=== PATIENT | female | born 1970 | race Caucasian/White ===

== ENCOUNTER → 2024-12-29 09:05 | Outpatient (REF) | payer BC, SELFPAY | LOC: WDC 09:05 | PROVIDERS: ATTENDING PHYSICIAN Family Medicine | DX: N63.20 Unspecified lump in the left breast, unspecified quadrant (principal) | CPT/HCPCS: 76642; 77062; 77066 ==

== ENCOUNTER 2025-04-18 15:09 | Emergency (ER) | payer BC, SELFPAY ==
[2025-04-18 15:13] VITALS: BP 176/93
[2025-04-18 15:40] LABS: Hematocrit 42.0 % (37.0-47.0); Hemoglobin 14.2 g/dL (12.0-16.0); Mean Corp Hgb Conc. 33.8 g/dL (33.0-37.0); Mean Corpuscular Volume 95.0 fL (81.0-99.0); Nucleated Red Blood Cells % 0 %; Platelet Count 268 10^3/uL (130-400); Red Cell Dist. Width 12.9 % (11.5-14.5)
[2025-04-18 15:53] LABS: ALT (SGPT) 24 U/L (0-35); AST (SGOT) 31 U/L (14-36); Albumin 5.0 g/dl (3.5-5.0); Alkaline Phosphatase 95 U/L (38-126); Blood Urea Nitrogen 10 mg/dl (7-17); Calcium 9.9 mg/dl (8.4-10.2); Carbon Dioxide 26 mmol/L (22-30); Chloride 102 mmol/L (98-107); Glucose 115 mg/dl (70-99); Potassium 4.0 mmol/L (3.5-5.1); Sodium 138 mmol/L (135-145); Total Protein 8.1 g/dl (6.3-8.2); eGFR > 60.00
[2025-04-18 16:00] LABS: Troponin I 0.013 ng/ml
[2025-04-18 19:51] VITALS: BP 149/89
--- NOTE | 2025-04-18 21:17 | ED.GENMED ---
History of Present Illness
General
Chief Complaint: Musculo-Skeletal Complaint
Source: patient
Exam Limitations: none
Time Seen by Provider: 04/18/25 19:22
Nursing documentation reviewed up to this point in time: agreed with
History of Present Illness
History of Present Illness:
Patient is a healthy 54-year-old female who presents to the emergency department with left axillary pain. Patient states that approximate 1 week ago when she was in the shower she noticed a small 'lump' in her left axilla. She states it is tender
when pressed. She denies any redness, warmth, or swelling. She also notices 'soreness' of her left upper arm over the past week. She denies any fever, chills. No numbness/tingling in left upper extremity. No chest pain or shortness of breath.
Patient denies any recent falls or known inciting trauma. Pain is not worse with range of motion. She denies any recent viral symptoms.
Her last mammogram was in September�without abnormal findings.
She denies any recent travel or recent surgeries. No personal or family history of blood clots or clotting disorders.
Past History
Past History
ED Past Medical History: None
ED Past Surgical History: None
Patient has exhibited threatening behavior?: No
Social History
Living: with family
Review of Systems
Review of Systems
Allergies reviewed?: Yes
All Other Systems: ROS reviewed and negative except as documented in HPI and ROS
Phy Exam
Physical Exam
Physical Exam:
Vitals: Hypertensive, otherwise vital. Afebrile
General: Patient is very well-appearing, no distress
Skin: Small, 0.5 cm subcutaneous nodule in left axilla without overlying skin erythema or warmth. No surrounding edema. No fluctuance or induration. Warm and dry, no rashes or lesions
Head: Normocephalic, atraumatic
Throat: Protecting airway
Neck: Normal ROM, no cervical spine tenderness
Cardiac: Regular rate
Pulm: No apparent respiratory distress
Abdomen: Nondistended
Extremities: Small subcutaneous nodule in left axilla as above. No bony tenderness or deformity of left upper extremity. No erythema or edema of left arm. She has full range of motion in left arm at wrist, elbow, and shoulder without pain.
Palpable brachial and radial pulses with normal sensation and capillary refill.
Neuro: Grossly intact
Psychiatric: Normal affect.
Course
Orders/Labs/Results
Orders:
Orders
04/18/25 15:14
Electrocardiogram (*1) Urgent
Reason for Study: Other
Other Reason for Exam: left arm pain
EKG- Treatment ONCE
04/18/25 15:21
Complete Blood Count/With Diff Urgent
Comprehensive Metabolic Panel Urgent
Troponin I Urgent
Abnormal Lab Results
04/18/25
15:21
MCH 32.1 H pg
(27.0-31.0)
MPV 11.1 H fL
(7.4-10.4)
Absolute Monos (auto) 0.8 H 10^3/uL
(0.1-0.6)
Monocytes % 10.0 H %
(1.7-9.3)
Glucose 115 H mg/dl
(70-99)
04/18/25 15:21
04/18/25 15:21
Vital Signs
Initial and Last Documented VS:
Initial Vital Signs
Temp Pulse Resp BP Pulse Ox
98 F 82 16 176/93 98
04/18/25 15:13 04/18/25 15:13 04/18/25 15:13 04/18/25 15:13 04/18/25 15:13
Last Documented Vital Signs
Temp Pulse Resp BP Pulse Ox
98 F 70 16 149/89 99
04/18/25 15:13 04/18/25 19:51 04/18/25 19:51 04/18/25 19:51 04/18/25 21:17
MDM/Problems Addressed
Differential Diagnosis Includes:
Not limited to: Lymphadenopathy, muscular strain, malignancy, etc.
MDM/Problems Addressed:
54 year-old female was left axillary discomfort for one week. No known injury or trauma. No infectious symptoms. No chest pain or shortness of breath. Vitals stable. On exam, patient appears well and in no distress. Left upper extremity
neurovascularly intact without any bony tenderness or deformity. No erythema or swelling of LUE. She has full range of motion. There is a very small, tender subcutaneous nodule in left axilla. There is no overlying skin changes including erythema,
warmth, or fluctuance.
While very low suspicion for cardiac etiology, labs and EKG were sent prior to my assessment. EKG without evidence of acute ischemia. Troponin undetectable. Symptoms have been constant for 1 week - feel this is sufficient to r/o acute cardiac
emergency. Patient�s lab work unremarkable.
Possible reactive lymphadenopathy. Patient has no risk factors for DVT without any findings on physical exam suggestive of this. She has no bony tenderness or recent trauma. Feel X-ray imaging very low yield. There is no evidence of infectious
process.
Considered ultrasound evaluation for further characterization/evaluation however after discussion w/ radiology, this will be better performed in the outpatient setting at the [facility] as they have experience with breast tissue.
There is no indication for emergent ultrasound with no evidence of infection or vascular compromise.
Discussed w/ patient at length who expresses verbal understanding.
Feel stable for discharge home with supportive care and close monitoring. She has appointment scheduled with [facility] this and will follow-up then.
Chronic conditions affecting care:
N/A
Acute Exacerbation and/or Progression of Chronic Illness:
N/A
*Pulse Oximetry
SaO2: 99
Oxygen Mode of Delivery: Room air
Patient hypoxic: no
*EKG
Interpreted by ED Provider?: Yes
EKG Intrepretation Date: 04/19/25
Interpretation: normal
Comparison EKG: no comparison EKG present
Heart Rate: 66
Rate: normal
Rhythm: sinus
[place]: normal axis
QRS Pattern: normal QRS
Ischemia: no ischemia
*Social Services Coordinator Interpretation
Rate: Social Services Coordinator- N/A
*Critical Care Note
Total Time (30-74mins, 75-104mins- exclusive of procedures): Not Applicable
ED Attending Note
-
Portions of this chart may have been created with voice recognition software.� Occasional wrong word or��sound alike� substitutions may have occurred due to the inherent limitations of voice recognition software.
Discharge Plan
Departure
Patient Disposition: Home (Routine Discharge)
Date of Disposition: 04/18/25
Time of Disposition: 20:53
Patient with high blood pressure during this ER visit?: Yes
Condition: Good
Discharge Problem:
Left axillary pain
Referrals:
Idris Grant MD [Family Provider, [facility]] - Follow up in 2-3 days
Activity Restrictions/Additional Instructions:
RETURN TO THE EMERGENCY DEPARTMENT WITH ANY FEVERS, CHEST PAIN OR SHORTNESS OF BREATH, REDNESS/SWELLING/WORSENING PAIN IN LEFT ARM, OR ANY OTHER CONCERNS
- As discussed, your lab work and cardiac enzymes were normal today in the emergency department. Your EKG showed no acute abnormalities
- Your symptoms may be due to a muscular strain axilla. Please follow-up for outpatient ultrasound/mammogram for further evaluation.
- You can take Tylenol and/or Motrin as needed for discomfort.
-Follow-up with [facility] on as scheduled.
Monitor your symptoms closely and return to the emergency department with any acute worsening/new symptoms or any other concerns
Interventions
Interventions:
*Risk Screen - Suicide Last Done: 04/18/25 15:13
*General Assessment Last Done: 04/18/25 19:51
*Neglect/Abuse Screening Last Done: 04/18/25 15:13
*ED- Fall Risk Assessment Last Done: 04/18/25 19:51
*Nursing Disposition Last Done: 04/18/25 21:19
ED-Musculoskeletal Assessment Last Done: 04/18/25 19:51
Discharge Date and Time
Discharge Date/Time: 04/18/25 21:19
Print Language: MACANESE
== END 2025-04-18 21:19 | disposition home or self-care (01) ==
LOC: EMR 15:09
PROVIDERS: EMERGENCY PHYSICIAN Student in an Organized Health Care Education/Training Program; FAMILY PHYSICIAN Family Medicine
DX: M79.622 Pain in left upper arm (principal); R03.0 Elevated blood-pressure reading, without diagnosis of hypertension
CPT/HCPCS: 99284; 80053; 84484; 85025; 93005

== ENCOUNTER 2025-04-30 09:02 | Emergency (ER) | payer BC, SELFPAY ==
[2025-04-30 09:05] VITALS: BP 129/78
--- NOTE | 2025-04-30 09:45 | ED.GENMED ---
History of Present Illness
General
Chief Complaint: Musculo-Skeletal Complaint
Source: patient
Exam Limitations: none
Time Seen by Provider: 04/30/25 09:41
History of Present Illness
History of Present Illness:
See MDM
Past History
Past History
ED Past Medical History: None
ED Past Surgical History: None
Patient has exhibited threatening behavior?: No
Social History
Tobacco: Non-smoker
Alcohol: Occasional
Living: with family
Phy Exam
Physical Exam
Physical Exam:
See MDM
Course
Orders/Labs/Results
Orders:
Orders
04/30/25 09:44
Oxycodone [Roxicodone] 5 mg PO NOW STA
Tib/Fib, Left 2 View [CR Leg Tibia/fibula Left 2 Vw] Urgent
Comment:
Reason For Exam: fall, pain below knee
04/30/25 10:25
Crutches-Treatment ONCE
Knee Immobilizer Left-Treatmen ONCE
Vital Signs
Initial and Last Documented VS:
Initial Vital Signs
Temp Pulse Resp BP Pulse Ox
99.5 F 89 18 129/78 100
04/30/25 09:05 04/30/25 09:05 04/30/25 09:05 04/30/25 09:05 04/30/25 09:05
Last Documented Vital Signs
Temp Pulse Resp BP Pulse Ox
99.5 F 89 18 129/78 100
04/30/25 09:05 04/30/25 09:05 04/30/25 09:05 04/30/25 09:05 04/30/25 09:47
MDM/Problems Addressed
Differential Diagnosis Includes:
Note:
CHIEF COMPLAINT(S)
Difficulty walking, pain possibly in the knee or leg.
HISTORY OF PRESENT ILLNESS
The patient is a 54-year-old female who presents with difficulty walking following a recent fall. She reports waking up in the morning and being unable to move well, leading her to call her friend for assistance. On exam, pt has pain below the left
knee and has had trouble with weight bearing. She denies numbness or tingling.
PHYSICAL EXAM
General: Mildly uncomfortable
Skin: Warm, dry.
Head: Normocephalic, atraumatic
Neck: Appears supple, trachea midline.
Eyes, Ears, Nose, Mouth, and Throat: Moist mucous membranes
Cardiovascular: No signs of cyanosis
Respiratory: Respirations are non-labored.
Abdomen: Non-distended
Musculoskeletal: Swelling and tenderness just below left knee. Distal extremity neurovascularly intact
Neurological: No focal neurological deficit observed.
Psychiatric: Cooperative, appropriate mood and affect.
PLAN
- Administer pain medication.
- Obtain an X-ray to evaluate for potential fracture.
MEDICAL DECISION MAKING
-Chronic conditions affecting care: None mentioned from the patients history.
-Data:
Category 1: Tests and documents
- X-ray ordered to assess for possible fracture.
DIFFERENTIAL DIAGNOSIS
The Differential Diagnosis includes, in no particular order and is not limited to:
- Fracture
- Sprain or strain
- Soft tissue injury
- Contusion
- Osteoarthritis exacerbation
- Ligament injury
- Meniscal injury
- Tendinitis
- Bursitis
- Muscle tear
MEDICATION RECONCILIATION
Patient is allergic to sulfa drugs.
PHYSICAL EXAM
- Nursing notes reviewed and vital signs reviewed.
DIAGNOSIS
- Suspected fracture of the knee or leg pending further investigation (ICD-10: S82.90XA - Unspecified fracture of lower leg, initial encounter).
SUMMARY OF ENCOUNTER
The patient, a 54-year-old female, presented to the emergency department with difficulty walking and suspected leg/knee pain following a night of alcohol consumption. An X-ray was performed and interpreted, showing a minimally displaced proximal
fibular fracture. The treatment plan was discussed, which included placing the patient in a knee immobilizer and using crutches. The patient expressed comfort with the proposed management plan and was advised to follow up with an orthopedic
specialist for reevaluation.
EMERGENCY TREATMENTS ADMINISTERED
The patient was placed in a knee immobilizer, and crutches were provided to assist with mobility.
PLAN
The patient will be placed in a knee immobilizer and instructed in the use of crutches to minimize weight-bearing on the affected leg. Follow-up with an occupational safety specialist is recommended for reevaluation of the fracture.
INDEPENDENT REVIEW OF LABS AND INTERPRETATION OF TESTS
- My independent interpretation of the X-ray shows a minimally displaced proximal fibular fracture.
PATIENT EDUCATION AND COUNSELING
The patient was educated on the use of the knee immobilizer and crutches. Instructions were given on the need for follow-up with an occupational safety specialist for further evaluation and management of the fracture.
FOLLOW-UP INSTRUCTIONS
The patient is advised to schedule a follow-up visit with an occupational safety specialist to reassess the proximal fibular fracture.
MEDICATION RECONCILIATION
The patient is allergic to sulfa drugs.
MEDICAL DECISION MAKING
- Complexity of Data Reviewed: Chronic conditions affecting care are not mentioned from the patients history. Differential diagnoses considered included fracture, sprain or strain, soft tissue injury, contusion, osteoarthritis exacerbation, ligament
injury, meniscal injury, tendinitis, bursitis, and muscle tear.
- Data:
- Category 1: An X-ray was ordered and independently interpreted to diagnose the fracture.
- Risk: The decision was made to manage the fracture conservatively with an immobilizer and crutches, with instructions for orthopedic follow-up.
DIAGNOSIS
Proximal fibular fracture, minimally displaced (ICD-10: S82.832A - Other fracture of upper and lower end of left fibula, initial encounter for closed fracture).
*Pulse Oximetry
SaO2: 100
Oxygen Mode of Delivery: Room air
Patient hypoxic: no
*Critical Care Note
Total Time (30-74mins, 75-104mins- exclusive of procedures): Not Applicable
ED Attending Note
-
Portions of this chart may have been created with voice recognition software.� Occasional wrong word or��sound alike� substitutions may have occurred due to the inherent limitations of voice recognition software.
Discharge Plan
Departure
Patient Disposition: Home (Routine Discharge)
Date of Disposition: 04/30/25
Time of Disposition: 10:26
Patient with high blood pressure during this ER visit?: No
Discharge Problem:
Closed fibular fracture
Instructions: Lower leg fracture
Prescriptions:
New
diclofenac sodium 75 mg tablet,delayed release (DR/EC)
75 mg PO BID PRN (Reason: Pain) Qty: 20 0RF
oxycodone 5 mg tablet
5 mg PO Q8H PRN (Reason: Pain) Qty: 14 0RF
Referrals:
Idris Grant MD [Family Provider, Family Practice]
Kranthi Hadley MD [Active, Orthopedics]
Activity Restrictions/Additional Instructions:
Please return for any worsening symptoms.
You may return at any time if you have further concerns.
Please follow up with your doctor at the first available appointment, preferably this week.
Please make an appointment to see the orthopedist.
Thank you for choosing [facility].
Interventions
Interventions:
*Risk Screen - Suicide Last Done: 04/30/25 09:05
ED-Musculoskeletal Assessment Last Done: 04/30/25 10:31
Discharge Date and Time
Print Language: SWEDISH
[2025-04-30] MEDS: ROXICODONE 5 MG PO (10:27)
== END 2025-04-30 11:23 | disposition home or self-care (01) ==
LOC: EMR 09:02
PROVIDERS: EMERGENCY PHYSICIAN Student in an Organized Health Care Education/Training Program; FAMILY PHYSICIAN Family Medicine
DX: S82.832A Other fracture of upper and lower end of left fibula, initial encounter for closed fracture (principal); W19.XXXA Unspecified fall, initial encounter; Z88.2 Allergy status to sulfonamides
CPT/HCPCS: 99283; 29505; 73590